=== PATIENT | male | born 1980 | race Caucasian/White ===

== ENCOUNTER 2021-11-20 12:56 | Outpatient (CLI) | payer BC ==
[~2021-11-20 12:56] MED LIST: CENTRUM1 TAB PO; LORTAB 5/500 501 TAB PO; PHENERGAN 25 TA25 MG PO; SYNTHROID0.175 MG PO; ZOFRAN 4MG T4 MG/TAB PO; [UNRECOGNIZED DRUG - REMARK]
[2021-11-20 13:22] LABS: BASO # 0.1 K/mm3 (0.0-0.2); BASO % 0.7 % (0.0-2.0); EOS # 0.1 K/mm3 (0.0-0.7); EOS % 2.1 % (0.0-4.0); GRAN # 5.1 K/mm3 (1.4-6.5); GRAN % 76.8 % (42.2-75.2); LYMPH # 0.8 K/mm3 (1.2-3.4); LYMPH % 11.7 % (20.0-51.0); MEAN CELL VOLUME 86 fl (80.0-100.0); MEAN CORPUSCULAR HEMOGLOBIN 28 pg (27-31); MEAN CORPUSCULAR HGB CONC 33 g/dl (33.0-37.0); MEAN PLATELET VOLUME 8.9 fl (7.4-10.4); MONO # 0.6 K/mm3 (0.1-0.6); MONO % 8.4 % (1.7-9.3); PLATELET COUNT 387 K/mm3 (130-400); RED BLOOD COUNT 4.99 M/mm3 (4.20-5.60); REDCELL DISTRIBUTION WIDTH-CV 12.7 % (11.5-14.5)
[2021-11-20 13:44] VITALS: BP 120/72; PULSE 85; TEMP 98.3
[2021-11-20 13:44] LABS: ALBUMIN 3.5 gm/dL (3.5-5.0); BILIRUBIN,TOTAL 0.4 mg/dL (0.2-1.2); CALCIUM 8.3 mg/dL (8.4-10.2); CREATININE, serum 1.16 mg/dL (0.72-1.25); POTASSIUM 3.7 mmol/L (3.5-4.5); TOTAL PROTEIN 6.6 gm/dL (6.2-8.1)
[2021-11-20] MEDS ORDERED: COZAAR 50MG50 MG/TAB PO (13:53)
[2021-11-20] MEDS ORDERED: ZYRTEC5 MG PO (13:53)
[2021-11-20 14:11] VITALS: BP 126/77; PULSE 82
[2021-11-20 14:30] VITALS: BP 130/68; PULSE 83
[2021-11-20 15:08] VITALS: BP 127/72; PULSE 69
[2021-11-20 15:30] VITALS: BP 111/65; PULSE 75
[2021-11-20 16:00] VITALS: BP 125/64; PULSE 71
== END 2021-11-20 16:27 ==
LOC: EUO 12:56
PROVIDERS: Internal Medicine Gastroenterology
DX: K50.90 Crohn's disease, unspecified, without complications (principal)
CPT/HCPCS: J1200; J1745; J2930; J7050

== ENCOUNTER 2021-12-03 13:56 | Outpatient (CLI) | payer BC ==
[2021-12-03] VITALS (8 sets, daily range): BP systolic 107–142; BP diastolic 53–77; PULSE 65–75; TEMP 98.4–98.6
[~2021-12-03] VITALS: Ht 180.3 cm; Wt 109.1 kg
[~2021-12-03 13:56] MED LIST changes: +COZAAR 50MG50 MG/TAB PO; +ZYRTEC5 MG PO
[2021-12-03 15:15] LABS: BASO # 0.1 K/mm3 (0.0-0.2); BASO % 0.8 % (0.0-2.0); EOS # 0.1 K/mm3 (0.0-0.7); EOS % 1.8 % (0.0-4.0); GRAN # 4.5 K/mm3 (1.4-6.5); GRAN % 74.3 % (42.2-75.2); HEMATOCRIT 41.9 % (42.0-52.0); HEMOGLOBIN 13.8 g/dl (13.5-18.0); LYMPH # 0.9 K/mm3 (1.2-3.4); LYMPH % 14.1 % (20.0-51.0); MEAN CELL VOLUME 86 fl (80.0-100.0); MEAN CORPUSCULAR HEMOGLOBIN 28 pg (27-31); MEAN CORPUSCULAR HGB CONC 33 g/dl (33.0-37.0); MEAN PLATELET VOLUME 9.5 fl (7.4-10.4); MONO # 0.5 K/mm3 (0.1-0.6); MONO % 8.7 % (1.7-9.3); PLATELET COUNT 353 K/mm3 (130-400); RED BLOOD COUNT 4.89 M/mm3 (4.20-5.60); REDCELL DISTRIBUTION WIDTH-CV 13.2 % (11.5-14.5)
[2021-12-03 15:35] LABS: ALBUMIN 3.5 gm/dL (3.5-5.0); BILIRUBIN,TOTAL 0.5 mg/dL (0.2-1.2); CALCIUM 8.3 mg/dL (8.4-10.2); CREATININE, serum 1.16 mg/dL (0.72-1.25); POTASSIUM 3.9 mmol/L (3.5-4.5); TOTAL PROTEIN 6.3 gm/dL (6.2-8.1)
== END 2021-12-03 20:48 | disposition home or self-care (01) ==
LOC: EUO 13:56
PROVIDERS: Internal Medicine Gastroenterology
DX: K50.90 Crohn's disease, unspecified, without complications (principal)
CPT/HCPCS: J1200; J1745; J2930; J7050

== ENCOUNTER 2021-12-30 13:52 | Outpatient (CLI) | payer BC ==
[~2021-12-30] VITALS: Ht 180.3 cm; Wt 109.1 kg
[2021-12-30] VITALS (7 sets, daily range): BP systolic 109–128; BP diastolic 67–82; PULSE 60–66; TEMP 97.5–97.8
[2021-12-30 14:38] LABS: BASO # 0.1 K/mm3 (0.0-0.2); BASO % 0.9 % (0.0-2.0); EOS # 0.1 K/mm3 (0.0-0.7); GRAN # 3.7 K/mm3 (1.4-6.5); GRAN % 68.4 % (42.2-75.2); HEMATOCRIT 42.9 % (42.0-52.0); HEMOGLOBIN 14.5 g/dl (13.5-18.0); LYMPH # 0.9 K/mm3 (1.2-3.4); MEAN CELL VOLUME 86 fl (80.0-100.0); MEAN CORPUSCULAR HEMOGLOBIN 29 pg (27-31); MEAN CORPUSCULAR HGB CONC 34 g/dl (33.0-37.0); MEAN PLATELET VOLUME 9.5 fl (7.4-10.4); MONO # 0.6 K/mm3 (0.1-0.6); MONO % 11.3 % (1.7-9.3); PLATELET COUNT 325 K/mm3 (130-400); RED BLOOD COUNT 5.01 M/mm3 (4.20-5.60); REDCELL DISTRIBUTION WIDTH-CV 13.4 % (11.5-14.5)
[2021-12-30 14:54] LABS: ALBUMIN 3.6 gm/dL (3.5-5.0); BILIRUBIN,TOTAL 0.6 mg/dL (0.2-1.2); CALCIUM 8.8 mg/dL (8.4-10.2); CREATININE, serum 1.27 mg/dL (0.72-1.25); POTASSIUM 3.9 mmol/L (3.5-4.5); TOTAL PROTEIN 6.1 gm/dL (6.2-8.1)
--- NOTE | 2021-12-30 16:36 | NUR ---
Pt refused pre meds prior to infusion.
--- NOTE | 2021-12-30 17:01 | NUR ---
Report to Мария Esocbar.
== END 2021-12-30 18:17 | disposition home or self-care (01) ==
LOC: EUO 13:52
PROVIDERS: Internal Medicine Gastroenterology
DX: K50.90 Crohn's disease, unspecified, without complications (principal)
CPT/HCPCS: J7050; Q5103

== ENCOUNTER 2022-02-24 14:00 | Outpatient (CLI) | payer BC ==
[~2022-02-24] VITALS: Ht 180.3 cm; Wt 109.0 kg
[2022-02-24 14:48] LABS: BASO # 0.1 K/mm3 (0.0-0.2); BASO % 0.9 % (0.0-2.0); EOS # 0.1 K/mm3 (0.0-0.7); EOS % 1.9 % (0.0-4.0); GRAN # 3.9 K/mm3 (1.4-6.5); GRAN % 68.4 % (42.2-75.2); HEMOGLOBIN 14.7 g/dl (13.5-18.0); LYMPH % 16.7 % (20.0-51.0); MEAN CELL VOLUME 86 fl (80.0-100.0); MEAN CORPUSCULAR HEMOGLOBIN 30 pg (27-31); MEAN CORPUSCULAR HGB CONC 34 g/dl (33.0-37.0); MEAN PLATELET VOLUME 9.6 fl (7.4-10.4); MONO # 0.7 K/mm3 (0.1-0.6); MONO % 11.8 % (1.7-9.3); PLATELET COUNT 317 K/mm3 (130-400); RED BLOOD COUNT 4.98 M/mm3 (4.20-5.60); REDCELL DISTRIBUTION WIDTH-CV 12.3 % (11.5-14.5)
[2022-02-24 15:05] LABS: ALBUMIN 3.4 gm/dL (3.5-5.0); BILIRUBIN,TOTAL 0.5 mg/dL (0.2-1.2); CALCIUM 8.7 mg/dL (8.4-10.2); CREATININE, serum 1.08 mg/dL (0.72-1.25); TOTAL PROTEIN 6.4 gm/dL (6.2-8.1)
[2022-02-24 15:40] VITALS: BP 123/75; PULSE 74; TEMP 97.4
[2022-02-24 16:00] VITALS: BP 133/81; PULSE 74
[2022-02-24 16:30] VITALS: BP 128/76; PULSE 68
--- NOTE | 2022-02-24 16:56 | NUR ---
Report from Мария James.
[2022-02-24 17:00] VITALS: BP 126/71; PULSE 71
[2022-02-24 17:44] VITALS: BP 124/82; PULSE 78
== END 2022-02-24 17:45 ==
LOC: EUO 14:00
PROVIDERS: Internal Medicine Gastroenterology
DX: K50.90 Crohn's disease, unspecified, without complications (principal)
CPT/HCPCS: J1745; J7050

== ENCOUNTER 2022-04-21 14:03 | Outpatient (CLI) | payer BC ==
[~2022-04-21] VITALS: Ht 180.3 cm; Wt 104.6 kg
[2022-04-21 14:30] LABS: BASO # 0.1 K/mm3 (0.0-0.2); BASO % 1.1 % (0.0-2.0); EOS # 0.1 K/mm3 (0.0-0.7); EOS % 2.1 % (0.0-4.0); GRAN # 4.4 K/mm3 (1.4-6.5); GRAN % 69.5 % (42.2-75.2); HEMATOCRIT 38.9 % (42.0-52.0); HEMOGLOBIN 13.3 g/dl (13.5-18.0); LYMPH # 1.2 K/mm3 (1.2-3.4); LYMPH % 18.6 % (20.0-51.0); MEAN CELL VOLUME 87 fl (80.0-100.0); MEAN CORPUSCULAR HEMOGLOBIN 30 pg (27-31); MEAN CORPUSCULAR HGB CONC 34 g/dl (33.0-37.0); MEAN PLATELET VOLUME 8.7 fl (7.4-10.4); MONO # 0.5 K/mm3 (0.1-0.6); MONO % 8.4 % (1.7-9.3); PLATELET COUNT 510 K/mm3 (130-400); RED BLOOD COUNT 4.47 M/mm3 (4.20-5.60); REDCELL DISTRIBUTION WIDTH-CV 11.7 % (11.5-14.5)
[2022-04-21 15:01] LABS: ALBUMIN 3.9 gm/dL (3.5-5.0); BILIRUBIN,TOTAL 0.5 mg/dL (0.2-1.2); CALCIUM 9.1 mg/dL (8.4-10.2); CREATININE, serum 1.17 mg/dL (0.72-1.25); POTASSIUM 3.9 mmol/L (3.5-4.5); TOTAL PROTEIN 7.1 gm/dL (6.2-8.1)
[2022-04-21 15:21] VITALS: BP 105/66; PULSE 71; TEMP 98.1
[2022-04-21 15:52] VITALS: BP 98/67; PULSE 65
[2022-04-21 16:20] VITALS: BP 114/75; PULSE 57
[2022-04-21 16:50] VITALS: BP 110/73; PULSE 65
== END 2022-04-21 17:31 ==
LOC: EUO 14:03
PROVIDERS: Internal Medicine Gastroenterology
DX: Z79.899 Other long term (current) drug therapy (principal)
CPT/HCPCS: J7050; Q5103

== ENCOUNTER 2022-10-04 13:00 | Outpatient (CLI) | payer BC ==
[~2022-10-04] VITALS: Ht 180.3 cm; Wt 115.8 kg
[~2022-10-04 13:00] MED LIST changes: +PRENATAL TABLET PO; +VITAMIN B125000 MCG PO; +VITAMIN D31000 I1 PO
[2022-10-04 13:32] VITALS: BP 121/68; PULSE 68; TEMP 98
[2022-10-04 14:00] VITALS: BP 121/79; PULSE 68; TEMP 98.3
[2022-10-04 14:15] VITALS: BP 119/78; PULSE 78; TEMP 98.3
[2022-10-04 14:45] VITALS: BP 121/82; PULSE 75; TEMP 98.3
[2022-10-04 16:30] VITALS: BP 140/95; PULSE 86; TEMP 98.3
== END 2022-10-04 17:00 | disposition home or self-care (01) ==
LOC: EUO 13:00
DX: K50.10 Crohn's disease of large intestine without complications (principal)
CPT/HCPCS: J1745; J7050

== ENCOUNTER 2023-05-18 13:03 | Outpatient (CLI) | payer BC ==
[~2023-05-18] VITALS: Ht 180.3 cm; Wt 111.6 kg
[2023-05-18 13:26] LABS: BASO # 0.1 K/mm3 (0.0-0.2); EOS # 0.1 K/mm3 (0.0-0.7); GRAN # 3.2 K/mm3 (1.4-6.5); GRAN % 52.9 % (42.2-75.2); HEMATOCRIT 45.5 % (42.0-52.0); HEMOGLOBIN 15.7 g/dl (13.5-18.0); LYMPH # 2.3 K/mm3 (1.2-3.4); LYMPH % 37.6 % (20.0-51.0); MEAN CELL VOLUME 89 fl (80.0-100.0); MEAN CORPUSCULAR HEMOGLOBIN 31 pg (27-31); MEAN CORPUSCULAR HGB CONC 35 g/dl (33.0-37.0); MEAN PLATELET VOLUME 9.5 fl (7.4-10.4); MONO # 0.4 K/mm3 (0.1-0.6); MONO % 7.3 % (1.7-9.3); PLATELET COUNT 272 K/mm3 (130-400); RED BLOOD COUNT 5.12 M/mm3 (4.20-5.60); REDCELL DISTRIBUTION WIDTH-CV 11.6 % (11.5-14.5)
[2023-05-18 13:44] LABS: ALBUMIN 4.3 gm/dL (3.5-5.0); BILIRUBIN,TOTAL 1.1 mg/dL (0.2-1.2); CALCIUM 9.1 mg/dL (8.4-10.2); CREATININE, serum 1.3 mg/dL (0.72-1.25); POTASSIUM 3.8 mmol/L (3.5-4.5); TOTAL PROTEIN 7.4 gm/dL (6.2-8.1)
[2023-05-18 14:33] VITALS: BP 142/74; PULSE 91; TEMP 98
[2023-05-18 14:46] VITALS: BP 125/78; PULSE 79; TEMP 98.2
[2023-05-18 15:02] VITALS: BP 109/71; PULSE 75
[2023-05-18 15:32] VITALS: BP 118/81; PULSE 67
[2023-05-18 16:01] VITALS: BP 122/81; PULSE 70
== END 2023-05-18 16:59 ==
LOC: EUO 13:03
PROVIDERS: Internal Medicine
DX: K50.10 Crohn's disease of large intestine without complications (principal)
CPT/HCPCS: J1745; J7050

== ENCOUNTER 2023-11-02 14:04 | Outpatient (CLI) | payer BC ==
[2023-11-02 14:19] LABS: MEAN CELL VOLUME 87 fl (80.0-100.0); MEAN CORPUSCULAR HEMOGLOBIN 31 pg (27-31); MEAN CORPUSCULAR HGB CONC 36 g/dl (33.0-37.0); MEAN PLATELET VOLUME 9.2 fl (7.4-10.4); PLATELET COUNT 266 K/mm3 (130-400); RED BLOOD COUNT 5.18 M/mm3 (4.20-5.60); REDCELL DISTRIBUTION WIDTH-CV 11.7 % (11.5-14.5)
[2023-11-02 14:38] LABS: ALBUMIN 4.1 g/dL (3.5-5.0); BILIRUBIN,TOTAL 0.9 mg/dL (0.2-1.2); CALCIUM 9.3 mg/dL (8.4-10.2); CREATININE, serum 1.27 mg/dL (0.72-1.25); POTASSIUM 3.9 mEq/L (3.5-4.5); TOTAL PROTEIN 7.6 g/dl (6.2-8.1)
[2023-11-02 14:45] VITALS: BP 143/73; PULSE 57
[2023-11-02 15:00] VITALS: BP 130/77; PULSE 60
[2023-11-02] MEDS ORDERED: NS IV SCH (15:00)
[2023-11-02] MEDS ORDERED: Acetaminophen 500 MG TAB PO ONE (15:00)
[2023-11-02] MEDS ORDERED: diphenhydrAMINE 25 MG CAP PO ONE (15:00)
[2023-11-02] MEDS ORDERED: INFLIXIMAB IV SCH (15:00)
[2023-11-02 15:19] VITALS: BP 134/69; PULSE 60
[2023-11-02 15:30] VITALS: BP 116/72; PULSE 56
[2023-11-02] MEDS ORDERED: MULTIPLE VITAMI1 CAP PO (15:30)
[2023-11-02 17:00] VITALS: BP 122/75; PULSE 58
--- NOTE | 2023-11-02 17:13 | NUR ---
PT TOLERATES INFUSION WELL. VS REMAIN WITHIN NORMAL LIMITS. IV DISCONAINUED UPON COMPLETION OF INFUSION AND PT FREE FROM ACUTE CONCERNS AND COMPLAINTS. NEXT APPOINTMENT IS SCHEDULED.
[2023-11-02 17:30] VITALS: BP 118/70; PULSE 60
== END 2023-11-02 17:41 | disposition home or self-care (01) ==
LOC: EUO 14:04
PROVIDERS: Internal Medicine Gastroenterology
DX: K50.10 Crohn's disease of large intestine without complications (principal)
CPT/HCPCS: J1745; J7050